=== PATIENT | male | born 1950 | race Caucasian/White ===

== ENCOUNTER 2022-02-02 18:06 | Emergency (ER) | payer OTHER ==
[~2022-02-02] VITALS: Ht 175.3 cm; Wt 83.9 kg
[2022-02-02 18:18] VITALS: BP_SYST 156
[2022-02-02] MEDS ORDERED: LORazepam 2 MG/ML VIAL IM ONE (19:30)
[2022-02-02] MEDS ORDERED: ACETAMINOPHEN 500 MG TABLET PO ONE (21:00)
[2022-02-02 21:46] VITALS: BP_SYST 156
== END 2022-02-02 21:46 | disposition home or self-care (01) ==
LOC: SED 18:06
DX: F41.9 Anxiety disorder, unspecified (principal); Z79.899 Other long term (current) drug therapy
CPT/HCPCS: 99283; 96372; J2060